=== PATIENT | female | born 1940 | race Caucasian/White ===

== ENCOUNTER 2016-08-24 11:53 | Day surgery (SDC) | payer OTHER, BC ==
[~2016-08-24] VITALS: Ht 165.1 cm; Wt 68.0 kg
[~2016-08-24 11:53] MED LIST: ACIPHEX20 MG PO; BENICAR HCT 201 EACH PO; BENICAR20 MG PO; CELEBREX200 MG PO; LEVOTHYROXINE100 MCG PO; LOVENOX100 MG/1 M SC; LOVENOX80 MG/0.8 SC; MAALOX ADVANCE355 ML PO; MIRALAX255 GM PO; OPDIVO40 MG/4 ML IV; VITAMIN B-12250 MC2 PO; VITAMIN D32000 UNI1 PO; ZANTAC75 M1 PO
[2016-08-24] MEDS ORDERED: PERCOCET 5/31 TABLET PO (12:30)
[2016-08-24 12:39] VITALS: BP 109/62
[2016-08-24] MEDS ORDERED: NORCO 5/3251 TABLET PO (16:29)
[2016-08-24 18:08] VITALS: BP 116/70
[2016-08-24 19:09] VITALS: BP 102/57
== END 2016-08-24 19:30 | disposition home or self-care (01) ==
LOC: SDC 11:53
PROC: 0JB80ZX Excision of Abdomen Subcutaneous Tissue and Fascia, Open Approach, Diagnostic (ICD-10-PCS; principal; 2016-08-24)
DX: C79.89 Secondary malignant neoplasm of other specified sites (principal); C34.91 Malignant neoplasm of unspecified part of right bronchus or lung; Z87.891 Personal history of nicotine dependence; Z80.0 Family history of malignant neoplasm of digestive organs; Z92.21 Personal history of antineoplastic chemotherapy; E78.5 Hyperlipidemia, unspecified; K21.0 Gastro-esophageal reflux disease with esophagitis; I10 Essential (primary) hypertension; E03.9 Hypothyroidism, unspecified
CPT/HCPCS: 88305; 88341 TC; 88342 TC; J0690; J1170

== ENCOUNTER 2016-11-24 18:38 | Inpatient (IN) | payer OTHER, BC ==
[~2016-11-24] VITALS: Ht 165.1 cm; Wt 76.2 kg
[~2016-11-24 18:38] MED LIST changes: +NORCO 5/3251 TABLET PO; +PERCOCET 5/31 TABLET PO
[2016-11-24 20:22] LABS: EOSINOPHIL (%) 0.8 % (0-5); HEMATOCRIT 38.8 % (36.0-46.0); IMMATURE GRANULOCYTE (%) 0.4 % (0.0-0.7); INSTRUMENT ABS NEUTROPHIL CT 3.3 K/uL; MCH 25.4 PG (29.0-34.0); MCHC 32.2 G/DL (30.0-36.0); MCV 78.9 FL (83-99); MEAN PLAT.VOLUME 8.6 uM^3 (9.5-12.4); MONOCYTE (%) 7.6 % (3-12); MONOCYTE COUNT 0.4 K/uL (0-0.8); NEUTROPHIL (%) 69.4 % (45-76); NEUTROPHIL COUNT 3.3 K/uL (1.8-6.4); PLATELET COUNT 311 K/uL (156-360); RBC DIS.WIDTH-SD 43.3 % (39-53); RED BLOOD COUNT 4.92 M/uL (3.80-5.20); WHITE BLOOD COUNT 4.7 K/uL (4.1-10.2)
[2016-11-24 20:32] LABS: CHLORIDE 99 mEq/L (99-109); POTASSIUM 4.1 mEq/L (3.7-5.4); SODIUM 138 mEq/L (136-147)
[2016-11-24 20:33] LABS: GLUCOSE 99 mg/dL (70-99)
[2016-11-24 20:35] LABS: ANION GAP 14 MEQ/L (2-14)
[2016-11-24 20:37] LABS: GFR ESTIMATE (CALCULATED) > 59 mL/min/
[2016-11-24 20:38] LABS: UREA NITROGEN (BUN) 20 mg/dL (9-23)
[2016-11-24 21:18] LABS: ADD MIUA? NO; BILIRUBIN NEGATIVE; BLOOD NEGATIVE; COLOR STRAW ((YELLOW)); GLUCOSE (STRIP) NEGATIVE; KETONES NEGATIVE; LEUKOCYTES NEGATIVE; NITRITE NEGATIVE; PROTEIN (STRIP) NEGATIVE; UCUL ADDED? NO; UROBILINOGEN 0.2 MG/DL (0.2-1.0)
[2016-11-24] MEDS ORDERED: BENICAR20 MG PO (21:33)
[2016-11-25 01:30] VITALS: BP 142/73
[2016-11-25 05:52] LABS: HEMATOCRIT 39.8 % (36.0-46.0); MCHC 33.4 G/DL (30.0-36.0); MCV 77.9 FL (83-99); MEAN PLAT.VOLUME 8.8 uM^3 (9.5-12.4); PLATELET COUNT 320 K/uL (156-360); RBC DIS.WIDTH-CV 15.1 % (11.8-14.6); RBC DIS.WIDTH-SD 42.2 % (39-53); RED BLOOD COUNT 5.11 M/uL (3.80-5.20); WHITE BLOOD COUNT 4.3 K/uL (4.1-10.2)
[2016-11-25 06:39] LABS: ANION GAP 12 MEQ/L (2-14); CHLORIDE 98 MEQ/L (99-109); GFR ESTIMATE (CALCULATED) > 59 mL/min/; GLUCOSE 143 mg/dL (70-99); POTASSIUM 4.1 MEQ/L (3.7-5.4); SAMPLE HEMOLYSIS CHECK 0; SAMPLE ICTERIC CHECK 0; SAMPLE LIPEMIA CHECK 0; SODIUM 135 MEQ/L (136-147); UREA NITROGEN (BUN) 16 mg/dL (9-23)
[2016-11-25 08:08] VITALS: BP 139/93
[2016-11-26 09:12] VITALS: BP 162/86
[2016-11-26 15:22] VITALS: BP 123/71
[2016-11-27 02:15] VITALS: BP 132/78
[2016-11-27 07:52] VITALS: BP 120/93
[2016-11-27 16:01] VITALS: BP 132/72
[2016-11-28 06:43] VITALS: BP 130/73
[2016-11-28 15:10] VITALS: BP 133/74
[2016-11-28 22:42] VITALS: BP 145/86
[2016-11-29 07:10] VITALS: BP 170/80
[2016-11-29 07:45] VITALS: BP 130/76
[2016-11-29] MEDS ORDERED: ATIVAN INTE2 MG/1 ML PO (09:03)
[2016-11-29] MEDS ORDERED: MORPHINE CON20 MG/M1 PO (09:03)
[2016-11-29] MEDS ORDERED: DECADRON2 MG PO (09:05)
[2016-11-29] MEDS ORDERED: BUTALB-APAP-CA1 EACH PO (09:11)
[2016-11-29] MEDS ORDERED: TYLENOL REGULA325 MG PO (09:14)
== END 2016-11-29 10:04 | DRG 181 ==
LOC: EME 18:38 → 5EAST 22:55 → EDOF 22:55 → 5EAST 11-25 00:54 → ENPENDDIS 11-29 09:45 → 5EAST 11-29 10:04
PROVIDERS: Emergency Medicine; Hospitalist
DX: C34.91 Malignant neoplasm of unspecified part of right bronchus or lung (principal); C79.31 Secondary malignant neoplasm of brain; R26.2 Difficulty in walking, not elsewhere classified; F02.80 Dementia in other diseases classified elsewhere, unspecified severity, without behavioral disturbance, psychotic disturbance, mood disturbance, and anxiety; R41.0 Disorientation, unspecified; K21.9 Gastro-esophageal reflux disease without esophagitis; M85.80 Other specified disorders of bone density and structure, unspecified site; G30.9 Alzheimer's disease, unspecified; E03.9 Hypothyroidism, unspecified; C79.2 Secondary malignant neoplasm of skin; R33.9 Retention of urine, unspecified; M17.0 Bilateral primary osteoarthritis of knee; I10 Essential (primary) hypertension; G91.9 Hydrocephalus, unspecified; R51 Headache; Z51.5 Encounter for palliative care; M54.9 Dorsalgia, unspecified; Z66 Do not resuscitate; Z87.891 Personal history of nicotine dependence
CPT/HCPCS: 70450; 73030; 73522; 73564; 80048; 81003; 85025; 85027; 99281; 99285; J1100; J1650; J2270; J7030; J8540; S0028